=== PATIENT | male | born 1950 | race Caucasian/White ===

== ENCOUNTER 2023-02-27 10:34 | Emergency (ER) | payer OTHER ==
[~2023-02-27] VITALS: Ht 177.8 cm; Wt 79.4 kg
[~2023-02-27 10:34] MED LIST: AZEL6DRO5 EACHEYE; DOCU100C36 PO; FEXO180T94 PO; HYDR-4303 PO; MELO-107 PO; NALO25TA PO; TIZA4TAB5 PO; ZOLP10TA2 PO
[2023-02-27] MEDS ORDERED: IV NS 0.9% 500 ML BAG IV ONE (11:00)
[2023-02-27 11:12] LABS: BASOPHILS # (AUTO) 0.1 K/uL (0.0-0.2); EOSINOPHILS # (AUTO) 0.3 K/uL (0.0-0.7); EOSINOPHILS % (AUTO) 5.2 % (0.0-6.0); HEMATOCRIT 33 % (39-51); HEMOGLOBIN 10.6 g/dL (13.5-17.5); LYMPHOCYTES # (AUTO) 0.7 K/uL (0.8-4.8); LYMPHOCYTES % (AUTO) 12.3 % (20.0-44.0); MEAN CORPUSCULAR HEMOGLOBIN 25 PG (26.0-33.0); MEAN CORPUSCULAR HGB CONC 32 g/dl (31.0-36.0); MEAN CORPUSCULAR VOLUME 78 fL (80-96); MONOCYTES # (AUTO) 0.3 K/uL (0.1-1.30); MONOCYTES % (AUTO) 5.7 % (2.0-12.0); NEUTROPHILS # (AUTO) 4.6 K/uL (1.8-8.9); NEUTROPHILS % (AUTO) 75.8 % (43.0-81.0); PLATELET COUNT (AUTO) 401 K/uL (150-450); RED BLOOD CELL COUNT(AUTO) 4.27 MIL/uL (4.5-6.0); RED CELL DISTRIBUTION WIDTH 17.9 % (11.5-15.0)
[2023-02-27 11:37] LABS: CALCIUM, SERUM 9.4 mg/dL (8.5-10.1); CREATININE 0.8 mg/dL (0.6-1.3); POTASSIUM 3.7 mmol/L (3.5-5.1)
[2023-02-27 11:44] LABS: ALBUMIN 3.3 g/dL (3.4-5.0); BILIRUBIN,DIRECT 0.1 mg/dL (0.0-0.2); BILIRUBIN,TOTAL 0.3 mg/dL (0.2-1.0); TOTAL PROTEIN, SERUM 7.2 g/dL (6.4-8.2)
[2023-02-27 13:43] LABS: APPEARANCE,URINE CLEAR (CLEAR); BILIRUBIN,URINE NEGATIVE (NEGATIVE); BLOOD, URINE 3+ Ery/uL (NEGATIVE); COLOR,URINE YELLOW (YELLOW); KETONES,URINE NEGATIVE (NEGATIVE); LEUKOCYTE ESTERASE ,URINE NEGATIVE (NEGATIVE); NITRITE, URINE NEGATIVE (NEGATIVE); PH,URINE 5.5 (5.0-8.0); PROTEIN,URINE NEGATIVE (NEGATIVE); UGLUCOSE NEGATIVE (NEGATIVE); UROBILINOGEN,URINE 0.2 EU/dL (0.2)
[2023-02-27 13:44] LABS: ADD URINE CULTURE NO; BACTERIA,URINE None seen /HPF (None Seen); SQUAMOUS EPITHELIAL CELL,UR Few /HPF (None Seen); WBC,URINE 0-2 /HPF (0-3)
[2023-02-27] MEDS ORDERED: MINERAL OIL 133 ML (PYXIS) 1 EA ENEMA RC ONE ×2 (15:00→15:11)
[2023-02-27] MEDS ORDERED: POLY17PO4 PO (15:03)
[2023-02-27] MEDS ORDERED: NA P133E8 RC (15:03)
[2023-02-27 15:57] VITALS: BP 123/77; TEMP 97.9; O2SAT 100
== END 2023-02-27 15:15 | disposition home or self-care (01) ==
LOC: ER 10:34
DX: K56.41 Fecal impaction (principal); R33.9 Retention of urine, unspecified; Z60.2 Problems related to living alone; Z85.46 Personal history of malignant neoplasm of prostate
CPT/HCPCS: 99284; 74176; 71045; 93005; 85025; 80048; 83690; 80076; 81001; 36415; J7040

== ENCOUNTER 2023-03-19 11:05 | Emergency (ER) | payer OTHER ==
[~2023-03-19] VITALS: Ht 175.3 cm; Wt 81.6 kg
[~2023-03-19 11:05] MED LIST changes: +NA P133E8 RC; +POLY17PO4 PO
[2023-03-19 12:39] LABS: BASOPHILS # (AUTO) 0.1 K/uL (0.0-0.2); BASOPHILS % (AUTO) 0.6 % (0.0-2.0); EOSINOPHILS % (AUTO) 0.1 % (0.0-6.0); HEMATOCRIT 39 % (39-51); HEMOGLOBIN 12.6 g/dL (13.5-17.5); LYMPHOCYTES # (AUTO) 0.9 K/uL (0.8-4.8); LYMPHOCYTES % (AUTO) 9.1 % (20.0-44.0); MEAN CORPUSCULAR HEMOGLOBIN 26 PG (26.0-33.0); MEAN CORPUSCULAR HGB CONC 33 g/dl (31.0-36.0); MEAN CORPUSCULAR VOLUME 79 fL (80-96); MONOCYTES # (AUTO) 1.1 K/uL (0.1-1.30); MONOCYTES % (AUTO) 11.6 % (2.0-12.0); NEUTROPHILS # (AUTO) 7.7 K/uL (1.8-8.9); NEUTROPHILS % (AUTO) 78.6 % (43.0-81.0); PLATELET COUNT (AUTO) 264 K/uL (150-450); RED BLOOD CELL COUNT(AUTO) 4.91 MIL/uL (4.5-6.0); RED CELL DISTRIBUTION WIDTH 19.9 % (11.5-15.0); WHITE BLOOD COUNT (AUTO) 9.8 K/uL (4.3-11.0)
[2023-03-19 12:50] LABS: CALCIUM, SERUM 9.7 mg/dL (8.5-10.1); CREATININE 0.8 mg/dL (0.6-1.3)
[2023-03-19 17:41] LABS: APPEARANCE,URINE CLEAR (CLEAR); BILIRUBIN,URINE NEGATIVE (NEGATIVE); BLOOD, URINE TRACE-INTA Ery/uL (NEGATIVE); COLOR,URINE YELLOW (YELLOW); KETONES,URINE NEGATIVE (NEGATIVE); LEUKOCYTE ESTERASE ,URINE NEGATIVE (NEGATIVE); NITRITE, URINE NEGATIVE (NEGATIVE); PROTEIN,URINE 2+ mg/dl (NEGATIVE); UGLUCOSE NEGATIVE (NEGATIVE); UROBILINOGEN,URINE 0.2 EU/dL (0.2)
[2023-03-19 18:10] VITALS: BP 126/76; TEMP 98; O2SAT 97
[2023-03-19 18:14] LABS: ADD URINE CULTURE NO; BACTERIA,URINE None seen /HPF (None Seen); MUCUS,URINE Few /LPF (None Seen); SQUAMOUS EPITHELIAL CELL,UR 0-2 /HPF (None Seen); URINE AMORPHOUS URATE Many /HPF (None Seen); WBC,URINE 0-2 /HPF (0-3)
== END 2023-03-19 19:17 | disposition home or self-care (01) ==
LOC: ER 11:05
DX: R33.9 Retention of urine, unspecified (principal); Z85.46 Personal history of malignant neoplasm of prostate; Z88.8 Allergy status to other drugs, medicaments and biological substances; Z60.2 Problems related to living alone
CPT/HCPCS: 36415; 72131-TC; 72148-TC; 80048-TC; 81001; 85025-TC; 87086-TC

== ENCOUNTER 2023-04-05 10:44 | Emergency (ER) | payer OTHER ==
[~2023-04-05] VITALS: Ht 177.8 cm; Wt 79.4 kg
[2023-04-05 12:19] LABS: BASOPHILS % (AUTO) 0.7 % (0.0-2.0); EOSINOPHILS # (AUTO) 0.1 K/uL (0.0-0.7); EOSINOPHILS % (AUTO) 1.8 % (0.0-6.0); HEMATOCRIT 33 % (39-51); HEMOGLOBIN 10.9 g/dL (13.5-17.5); LYMPHOCYTES # (AUTO) 0.8 K/uL (0.8-4.8); LYMPHOCYTES % (AUTO) 14.2 % (20.0-44.0); MEAN CORPUSCULAR HEMOGLOBIN 26 PG (26.0-33.0); MEAN CORPUSCULAR HGB CONC 33 g/dl (31.0-36.0); MEAN CORPUSCULAR VOLUME 78 fL (80-96); MONOCYTES # (AUTO) 0.4 K/uL (0.1-1.30); MONOCYTES % (AUTO) 6.6 % (2.0-12.0); NEUTROPHILS # (AUTO) 4.6 K/uL (1.8-8.9); NEUTROPHILS % (AUTO) 76.7 % (43.0-81.0); PLATELET COUNT (AUTO) 399 K/uL (150-450); RED BLOOD CELL COUNT(AUTO) 4.24 MIL/uL (4.5-6.0); RED CELL DISTRIBUTION WIDTH 19.3 % (11.5-15.0); WHITE BLOOD COUNT (AUTO) 5.9 K/uL (4.3-11.0)
[2023-04-05 12:26] LABS: APPEARANCE,URINE CLOUDY (CLEAR); BILIRUBIN,URINE 1+ (NEGATIVE); BLOOD, URINE 3+ Ery/uL (NEGATIVE); COLOR,URINE YELLOW (YELLOW); KETONES,URINE TRACE mg/dL (NEGATIVE); LEUKOCYTE ESTERASE ,URINE 2+ (NEGATIVE); NITRITE, URINE POSITIVE (NEGATIVE); PROTEIN,URINE 2+ mg/dl (NEGATIVE); UGLUCOSE NEGATIVE (NEGATIVE)
[2023-04-05 12:43] LABS: ALBUMIN 2.9 g/dL (3.4-5.0); BILIRUBIN,DIRECT 0.1 mg/dL (0.0-0.2); BILIRUBIN,TOTAL 0.3 mg/dL (0.2-1.0); CALCIUM, SERUM 9.6 mg/dL (8.5-10.1); CREATININE 0.8 mg/dL (0.6-1.3); TOTAL PROTEIN, SERUM 7.2 g/dL (6.4-8.2)
[2023-04-05 13:03] LABS: RBC,URINE 51-80 /HPF (0-2)
[2023-04-05 13:04] LABS: ADD URINE CULTURE YES; BACTERIA,URINE Many /HPF (None Seen); WBC,URINE 21-50 /HPF (0-3)
[2023-04-05] MEDS ORDERED: CEFTRIAXONE 1GM BAG (ER ONLY) 50 ML IV ONE (14:12)
[2023-04-05] MEDS: CEFTRIAXONE 1 G in IV D5W 50 ML IV ONE (14:20)
[2023-04-05] MEDS ORDERED: LACT10SO58 PO (15:17)
[2023-04-05] MEDS ORDERED: CEFD300C3 PO (15:21)
[2023-04-05 15:30] VITALS: BP 130/75; TEMP 98.4; O2SAT 100
== END 2023-04-05 15:36 | disposition home or self-care (01) ==
LOC: ER 10:48
DX: K59.00 Constipation, unspecified (principal); Z60.2 Problems related to living alone
CPT/HCPCS: 99284; 74176; 96365; 85025; 80048; 87086; 83605; 83690; 80076; 81001; 36415; J0696 ×2; J7060

== ENCOUNTER 2023-04-24 10:28 | Emergency (ER) | payer OTHER ==
[~2023-04-24] VITALS: Ht 177.8 cm; Wt 79.4 kg
[~2023-04-24 10:28] MED LIST changes: +CEFD300C3 PO; +LACT10SO58 PO
[2023-04-24 11:40] VITALS: BP 126/93; TEMP 98.2; O2SAT 98
== END 2023-04-24 11:40 | disposition home or self-care (01) ==
LOC: ER 10:28
DX: T83.091A Other mechanical complication of indwelling urethral catheter, initial encounter (principal); Z60.2 Problems related to living alone; Z79.899 Other long term (current) drug therapy